=== PATIENT | male | born 1955 | race Caucasian/White ===

== ENCOUNTER 2018-02-20 20:14 | Observation (INO) ==
[2018-02-20] MEDS ORDERED: Nitroglycerin 0.4 MG TAB.SUBL SL ONE (20:28)
[2018-02-20] MEDS ORDERED: Ipratropium/Albuterol Neb 3 ML IH ONE (20:28)
[2018-02-20] MEDS ORDERED: predniSONE 20 MG TABLET PO ONE (20:28)
--- NOTE | 2018-02-20 20:32 | Emergency Department Note ---
Disposition Clinical Impression: Chest pain Qualifiers: Chest pain type: precordial pain Qualified Code(s): R07.2 - Precordial pain Disposition: Admitted As Inpatient Instructions: Chest Pain (ED) [facility] [Primary Care Provider[facility] - Time of Disposition: 00:12 General Adult HPI - General Stated complaint: seizure like activity Time Seen by Provider: 02/20/18 20:17 Source: patient Mode of arrival: EMS Limitations: no limitations - History of Present Illness HPI Narrative: This is a 63-year-old male who comes to the emergency department reporting epigastric and lower sternal chest pain that started about 1 hour prior to arrival. Reports associated nausea, but is also being treated for an ulcerative colitis flare and diverticulitis. 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 - Related Data Allergies Allergy/AdvReac Type Severity Reaction Status Date / Time acetaminophen [From Tylenol] Allergy Gastrointestinal Verified 02/20/18 20:37 Upset All systems ED: reviewed and negative except as stated. Cardiovascular: Reports: chest pain Gastrointestinal: Reports: nausea Physical Exam - General Limitations: no limitations General appearance: alert, in distress (In minimal distress) - Head Head exam: atraumatic, normocephalic, normal inspection - Chest Chest inspection: Present: normal inspection, symmetric chest wall rise - Respiratory Respiratory exam: Present: wheezes (There are x-ray wheezes in all polo). Absent: respiratory distress, stridor, accessory muscle use, prolonged expiratory phase - Cardiovascular Cardiovascular exam: Present: regular rate, normal rhythm, normal heart sounds - Abdominal Exam Abdominal exam: Present: soft, tenderness Abdominal tenderness: Present: RUQ, epigastrium. Absent: RLQ, LUQ, LLQ - Extremities Exam Extremities exam: Present: normal inspection, full ROM. Absent: tenderness, pedal edema - Neurological Exam Neurological exam: Present: alert, oriented X3, CN II-XII intact. Absent: motor sensory deficit - Psychiatric Psychiatric exam: Present: normal affect, normal mood - Skin Skin exam: Present: warm, dry, intact, normal color Course Course Narrative: This is a 63-year-old male with chest pain and epigastric pain Vital Signs Temperature 99.4 F 02/20/18 20:24 Pulse Rate 102 02/20/18 20:24 Respiratory Rate 18 02/20/18 20:24 Blood Pressure 138/96 02/20/18 20:24 O2 Sat by Pulse Oximetry 99 02/20/18 20:24 Temperature 99.4 F 02/20/18 20:24 Pulse Rate 96 02/20/18 22:00 Respiratory Rate 18 02/20/18 21:22 Blood Pressure 117/86 02/20/18 22:00 O2 Sat by Pulse Oximetry 99 02/20/18 22:00 Oxygen Delivery Oxygen Delivery Room Air Medical Decision Making - MDM Narrative Medical decision making narrative: This is a 63-year-old male with epigastric and lower sternal pain concerning for possible acute coronary syndrome. His initial evaluation was negative. I discussed his case with the on-call hospitalist, who accepted him for admission. - Lab Data Lab results reviewed: Yes I reviewed the patient's lab results. Lab results narrative: CBC shows leukocytosis at 15.3 with anemia at 12.1 and 37.3 BMP was unremarkable Troponin was low Result diagrams: 02/20/18 21:31 02/20/18 21:31 Lab Results 02/20/18 02/20/18 Range/Units 21:31 21:31 WBC 15.3 H (4.3-11.1) K/mcL RBC 4.49 (4.19-5.50) M/mcL Hgb 12.1 L (12.9-16.9) g/dL Hct 37.3 L (37.5-50.1) % MCV 83.1 (83.0-100.0) fL MCH 26.9 L (28.0-33.3) pg MCHC 32.4 (31.6-35.5) g/dL RDW 14.3 (11.5-14.5) % Plt Count 342 (140-400) K/mcL MPV 8.8 L (9.4-12.4) fL Immature Gran % 2.0 (0-4) % Seg Neutrophils % 69.3 % Lymphocytes % 17.5 % Monocytes % 9.2 % Eosinophils % 1.5 % Basophils % 0.5 % Neutrophils # 10.6 H (1.6-8.9) K/mcL Lymphocytes # 2.7 (0.6-4.6) K/mcL Monocytes # 1.4 H (0.0-1.3) K/mcL Eosinophils # 0.2 (0.0-0.6) K/mcL Basophils # 0.1 (0.0-0.2) K/mcL Immature Plt Fraction 1.2 (1.1-6.1) % Sodium 133 L (136-145) mEq/L Potassium 4.4 (3.5-5.1) mEq/L Chloride 100 (98-107) mEq/L Carbon Dioxide 27 (23-29) mEq/L BUN 26 H (8-23) mg/dL Creatinine 0.68 L (0.70-1.30) mg/dL Est GFR ( Amer) > 60 (> 60) Est GFR (Non-Af Amer) > 60 (> 60) BUN/Creatinine Ratio 38 H (6-26) Glucose 108 H (70-105) mg/dL Calculated Osmolality 281 (280-300) Calcium 8.9 (8.6-10.3) mg/dL Troponin I < 0.03 (< 0.04) ng/mL - Radiology Data Radiology results reviewed: Yes I reviewed the patient's radiology results. Chest x-ray showed by bilateral atelectasis - EKG Data EKG #1 EKG results narrative: ECG showed sinus tachycardia, 105 bpm, normal intervals, normal axis, T waves are larger than normal but not hyperacute, there are very small ST elevations diffusely EKG #2 EKG attestation: Yes I reviewed and interpreted this EKG. EKG results narrative: A repeat EKG was performed because of the wandering baseline on the initial and. This showed a sinus tachycardia at 100 bpm, normal intervals, normal axis , no ST or T-wave abnormalities except T waves in leads 2 and 3 larger is typical. Critical Care Time Critical Care Time: Yes Total Critical Care Time: 15 Attestation: 50 minutes of critical care time was spent independent of other billable procedures
[2018-02-20 21:54] LABS: Basophils # 0.1 K/mcL (0.0-0.2); Basophils % 0.5 %; Eosinophils # 0.2 K/mcL (0.0-0.6); Eosinophils % 1.5 %; Hematocrit 37.3 % (37.5-50.1); Hemoglobin 12.1 g/dL (12.9-16.9); Immature Platelets 1.2 % (1.1-6.1); Lymphocytes # 2.7 K/mcL (0.6-4.6); Lymphocytes % 17.5 %; Mean Corpuscular HGB Conc 32.4 g/dL (31.6-35.5); Mean Corpuscular Hemoglobin 26.9 pg (28.0-33.3); Mean Corpuscular Volume 83.1 fL (83.0-100.0); Mean Platelet Volume 8.8 fL (9.4-12.4); Monocytes # 1.4 K/mcL (0.0-1.3); Monocytes % 9.2 %; Neutrophils # 10.6 K/mcL (1.6-8.9); Platelet Count 342 K/mcL (140-400); Red Blood Count 4.49 M/mcL (4.19-5.50); Red Cell Distribution Width 14.3 % (11.5-14.5); Segmented Neutrophils % 69.3 %
[2018-02-20 22:22] LABS: BUN/Creatinine Ratio 38 (6-26); Blood Urea Nitrogen 26 mg/dL (8-23); Calcium 8.9 mg/dL (8.6-10.3); Carbon Dioxide 27 mEq/L (23-29); Chloride 100 mEq/L (98-107); Glucose 108 mg/dL (70-105); Osmolality,Calculated 281 (280-300); Potassium 4.4 mEq/L (3.5-5.1); Sodium 133 mEq/L (136-145); Troponin I < 0.03 ng/mL (< 0.04); eGFR For Non-African Americans > 60 (> 60)
[2018-02-20] MEDS ORDERED: *HR* FentaNYL (PF) 100 MCG/2 ML VIAL IVP ONE (22:35)
[2018-02-21] MEDS ORDERED: hydrOXYzine pamoate 25 MG CAPSULE PO PRN (01:08)
[2018-02-21] MEDS ORDERED: Isovue-370 500 ML INFUS..BTL IV ONE (01:09)
[2018-02-21] MEDS ORDERED: GI Cocktail 40 ML EACH PO ONE (01:10)
[2018-02-21] MEDS ORDERED: Mag Hydrox/Al Hydrox/Simeth 30 ML UDC PO PRN (01:10)
[2018-02-21] MEDS ORDERED: *HR* Promethazine 25 MG/ML VIAL IVP ONE (01:11)
[2018-02-21] MEDS: traZODone 50 MG TABLET PO SCH ×2 (01:47→21:43)
[2018-02-21] MEDS: Ringers Solution, Lactated 1,000 ML IVC SCH ×2 (01:47→14:41)
--- NOTE | 2018-02-21 02:02 | Internal Med History&Physical ---
Date of Encounter: 02/21/18 Time of Encounter: 01:59 Internal Medicine - H&P: HPI Chief complaint: Abdominal pain Admitted From: Home Plans for Post Hospital Care: Home History of present illness: Luis A Meek is a 63-year-old man with a history of psychotic disorder ( bipolar and schizoaffective) and reports a history of inflammatory bowel disease that has been evaluated at multiple times and multiple medical centers he reports in addition to Barretts esophagus who presents here with the complaint of abdominal pain which she initially described as epigastric and also in the lower sternal area associated with nausea and subsequently he says it was in the lower abdomen associated with bleeding per rectum. He states his care has usually been at the [facility] for which she was recently hospitalized. He also admits to prior history of suicidal ideation which warranted inpatient psychiatric admission but says this is no longer active. He states that his pain is chronic however now acutely it has worsened. She describes the pain as sharp and occasionally stabbing associated with severe nausea. His food intake is limited to pureed foods and full liquid diet. The initial concern in the ER for him was chest pain for which reason EKGs were done and troponin assessments however he subsequently changed his complaints after admission stating that he has a lower abdominal pain and believes he has a flare from his inflammatory bowel disease. He states he has been taking steroids for the past 1 week because of this. He is highly tangential and is difficult to stay on topic when conversing with him. At this time other than requesting medication for nausea and abdominal pain he says he has no other complaints. He denies fever, chills, diarrhea, dyspnea and dysuria. Of note, he relates a history of seizure disorder for which she is on levetiracetam. Past Med Surg Social Fam HX - Past Medical History Medical history: COPD, hyperlipidemia, seizures, syncope Additional medical history: diverticulitis, UC, barrets esophagus, previous SI with tylenol Psychiatric history: anxiety, bipolar, depression, PTSD, schizophrenia - Past Surgical History Additional surgical history: abd surgery, face surgery, - Social History Smoking Status: Former smoker Alcohol use: none Drug use: none - Family History Mother Living Status: Age at : 56 Cause of : lung CA Hx Family Cancer: Yes Father Living Status: Age at : 76 Hx Family Cancer: Yes (esopageal) Sister Living Status: Age at : 48 Hx Family Cancer: Yes (reproductive organs) Internal Medicine - H&P: Meds Asenapine Maleate [Saphris] 10 mg SL HS 02/21/18 [History] Aspirin [Lo-Dose Aspirin EC] 81 mg PO DAILY 02/21/18 [History] Atorvastatin [Lipitor] 40 mg PO HS 02/21/18 [History] Balsalazide Disodium [Colazal] 750 mg PO TID 02/21/18 [History] Budesonide/Formoterol 160/4.5 [Symbicort 160/4.5] 2 puff IH BIDR 02/21/18 [ History] Docusate [Colace] 100 mg PO BID 02/21/18 [History] Famotidine [Pepcid] 40 mg PO BID 02/21/18 [History] Levofloxacin [Levaquin] 750 mg PO DAILY 02/21/18 [History] Mirtazapine [Remeron] 30 mg PO HS 02/21/18 [History] Nicotine Patch [Nicoderm] 7 mg TD DAILY 02/21/18 [History] OLANZapine [Zyprexa] 5 mg PO BID 02/21/18 [History] Ondansetron ODT [Zofran ODT] 4 mg SL Q8HR PRN 02/21/18 [History] Tamsulosin [Flomax] 0.4 mg PO DAILY 02/21/18 [History] clonazePAM [Clonazepam] 1 mg PO TID 02/21/18 [History] hydrOXYzine HCl [Hydroxyzine HCl] 25 mg PO QID PRN 02/21/18 [History] predniSONE [PredniSONE] 20 mg PO DAILY 02/21/18 [History] traZODone [TraZODone] 100 mg PO HS 02/21/18 [History] 3 Allergy/AdvReac Type Severity Reaction Status Date / Time acetaminophen [From Tylenol] Allergy Gastrointestinal Verified 02/20/18 20:37 Upset All Systems PM: A 10-system review of systems was performed and is negative for pertinent findings except as documented above in the HPI. - Constitutional Vitals: Temp Pulse Resp BP Pulse Ox 98.0 F 80 18 133/87 15 02/21/18 01:08 02/21/18 01:08 02/20/18 21:22 02/21/18 01:08 02/21/18 01:08 Exam: Vitals: Reviewed General: Appears somewhat unkempt Skin: Pale and dry HEENT: Slightly dry mucous membranes. Mild conjunctivae pallor. Neck: No lymphadenopathy. No JVD. No carotid bruits. No palpable thyroid. Chest: Normal thoracic expansion. Normal breath sounds. Clear to auscultation. Heart: Normal S1 & S2; rhythmic. No rubs or murmurs. Abdomen: Non-distended, soft and non-tender to palpation. No peritoneal reaction. Extremities: No clubbing, cyanosis or edema. No calf tenderness. Normal distal pulses. Neurological: Awake, alert and oriented to person, place and time. No focal deficits. Psych: Affect appropriate. Internal Med - H&P Results - Labs CBC & Chem 7: 02/20/18 21:31 02/20/18 21:31 - Assessment and plan (1) Abdominal pain Current Visit: Yes Status: Acute Assessment and plan: Given his reported history of IBD which he cannot specify time of diagnosis or if on active medications, will obtain a CT abdomen w/ contrast to assess for colonic inflammation as the potential cause of his abdominal pain. Symptomatic treatment for now. Received steroids in the ER and has been on steroids for a week which likely explains his leukocytosis. Stool for occult blood evaluation necessary. Qualifiers: Abdominal location: generalized Qualified Code(s): R10.84 - Generalized abdominal pain (2) Chest pain Current Visit: Yes Status: Acute Assessment and plan: Questionable history; will keep on telemetry in the interim, repeat EKG and troponin just in case. Qualifiers: Chest pain type: unspecified Qualified Code(s): R07.9 - Chest pain, unspecified (3) Psychiatric disorder Current Visit: Yes Status: Acute Assessment and plan: May need psych eval during hospital stay. For now meds will be reconciled. No suicidal ideation at this time. (4) Seizure disorder Current Visit: Yes Status: Acute Assessment and plan: Reported. Unclear what dose of medication he is on. Will attempt to clarify and resume accordingly however for now we do not find evidence of him being on it. Will check a level. (5) DVT prophylaxis Current Visit: Yes Status: Acute Assessment and plan: Heparin SubQ ordered. - Time Spent With Patient Total time spent is greater than 50% in coordination of care (as documented) at patient's floor/unit and/or counseling patient: Greater than 35 minutes
[2018-02-21 06:12] LABS: Basophils # 0.1 K/mcL (0.0-0.2); Basophils % 0.3 %; Eosinophils % 0.1 %; Hematocrit 39.6 % (37.5-50.1); Hemoglobin 12.8 g/dL (12.9-16.9); Immature Granulocytes % 1.6 % (0-4); Lymphocytes % 11.3 %; Mean Corpuscular HGB Conc 32.3 g/dL (31.6-35.5); Mean Corpuscular Hemoglobin 26.8 pg (28.0-33.3); Mean Corpuscular Volume 82.8 fL (83.0-100.0); Monocytes # 0.7 K/mcL (0.0-1.3); Monocytes % 3.9 %; Neutrophils # 14.3 K/mcL (1.6-8.9); Platelet Count 361 K/mcL (140-400); Red Blood Count 4.78 M/mcL (4.19-5.50); Red Cell Distribution Width 14.6 % (11.5-14.5); Segmented Neutrophils % 82.8 %
[2018-02-21] MEDS: Pantoprazole 40 MG VIAL IVP SCH ×2 (06:12→06:17)
[2018-02-21] MEDS: *HR* Heparin 5,000 UNIT/ML VIAL SQ SCH ×3 (06:12→21:43)
[2018-02-21 06:39] LABS: Troponin I < 0.03 ng/mL (< 0.04)
[2018-02-21] MEDS ORDERED: Ketorolac 30 MG/ML VIAL IVP ONE (06:45)
[2018-02-21 07:03] LABS: Alanine Aminotransferase 11 Units/L (7-52); Albumin 3.6 g/dL (3.5-5.7); Albumin/Globulin Ratio 1.1 (1.1-2.2); Alkaline Phosphatase 67 Units/L (34-104); Aspartate Amino Transferase 14 Units/L (13-39); BUN/Creatinine Ratio 36 (6-26); Bilirubin,Total 0.2 mg/dL (0.3-1.0); Blood Urea Nitrogen 20 mg/dL (8-23); Calcium 9.2 mg/dL (8.6-10.3); Carbon Dioxide 24 mEq/L (23-29); Chloride 103 mEq/L (98-107); Globulin 3.2 g/dL (2.4-3.5); Glucose 134 mg/dL (70-105); Osmolality,Calculated 287 (280-300); Potassium 4.1 mEq/L (3.5-5.1); Sodium 136 mEq/L (136-145); Total Protein 6.8 g/dL (6.4-8.9); eGFR For Non-African Americans > 60 (> 60)
[2018-02-21] MEDS: Budesonide/Formoterol 160/4.5 1 PUFF INH IH SCH ×2 (08:03→22:32)
[2018-02-21] MEDS: *HR* OxyCODONE Immed Rel 5 MG TABLET PO PRN ×3 (08:43→19:42)
[2018-02-21] MEDS: OLANZapine 5 MG TAB.RAPDIS PO SCH ×2 (08:45→21:43)
[2018-02-21] MEDS: MetroNIDAZOLE 500 MG/100 ML 500 MG/100 ML BAG IVPB SCH ×2 (08:46→17:20)
[2018-02-21] MEDS: Nicotine 7 MG PATCH.TD24 TD SCH (08:46)
[2018-02-21] MEDS: clonazePAM 1 MG TABLET PO SCH ×3 (08:46→21:43)
[2018-02-21] MEDS: Famotidine 20 MG TABLET PO SCH ×2 (08:46→21:44)
[2018-02-21] MEDS: *HR* Promethazine 25 MG/ML VIAL IVP PRN ×2 (09:00→17:28)
--- NOTE | 2018-02-21 15:37 | Event Note ---
Date of Encounter: 02/21/18 Time of Encounter: 15:33 Patient was seen and examined by hospitalist earlier this morning. Currently patient is alert and appropriate following simple commands denies any chest pain or shortness of breath at this time. Does complain of occasional abdominal pain and it does have some tenderness to right lower quadrant on palpation. We will obtain medical records from the [place]. Awaiting GI recommendations
--- NOTE | 2018-02-21 15:56 | Gastroenterology Consult Note ---
<Bailee Gage - Last Filed: 02/21/18 21:59> Date of Encounter: 02/21/18 Time of Encounter: 15:54 - Assessment and plan (1) Abdominal pain Current Visit: Yes Status: Acute Assessment and plan: 63-year-old male with reporting past medical history of ulcerative colitis and Tomlin's esophagus complaining of abdominal pain. Sharp in nature and pulsatile. Recently seen at [facility] and treated for ulcerative colitis and diverticulitis with antibiotics and steroids. Started on Bisalazide by [facility] gastroenterologists. Diagnosed with ulcerative colitis in 2007, self treating with diet control. Abdominal CT demonstrated small bowel wall thickening concern for infectious vs inflammatory process. WBC 17.3 (15.3), afebrile stool occult negative AST, ALT, alkaline phosphatase WNL Plan: -Enteroscopy tomorrow -Currently on ciprofloxacin and metronidazole -started on bentyl, Lactobacillus -home Colace -continue NPO Qualifiers: Abdominal location: generalized Qualified Code(s): R10.84 - Generalized abdominal pain - Time Spent With Patient Total time spent is greater than 50% in coordination of care (as documented) at patient's floor/unit and/or counseling patient: GI History of Present Illness - Data of Consult Consult date: 02/21/18 Requesting Physician: Clarence Goss MD - Consult Narrative Reason for consult: History of IBD and small bowel wall thickening on CT History of present illness: Mr. Meek is a 63 year old male with past medical history of ulcerative colitis , Tomlin's esophagus, schizophrenia, bipolar who presented to [facility] due to abdominal pain for which gastroenterology was consulted due to history of IBD and abdominal CT findings. Abdominal/pelvis CT demonstrated small bowel wall thickening concern for infectious process vs inflammation. The patient reported that he was diagnosed with ulcerative colitis in 2007 for which he has been managing himself with a specific bland diet. He reported that he was at the [place] in [place] and there he was treated for ulcerative colitis flare with antibiotics and steroids. He was was seen by gastroenterologists there and started on bisalazide which he reports he cannot tolerate due to his abdomen swelling and more pain. He had an EGD and colonoscopy at that time 3 weeks ago which demonstrated one polyp in the colon. He said the EGD was normal. He stated that he also cannot take PPI due to side effects. He stated that he came to the hospital because of worsened abdominal pain that is pulsatile and sharp in nature. Pain medications and steroids help. No family history of ulcerative colitis. He is a former smoker and ETOH drinker. He quit smoking marijuana. He denies weight loss, fever, chills, chest pain, melena, hematachezia. The patient was started on Cipro and Flagyl in the ED and given a dose of prednisone. Past Med Surg Social Fam HX - Past Medical History Attestation: Yes The following information was validated with the patient. Source: patient Medical history: COPD, hyperlipidemia, seizures, syncope Additional medical history: diverticulitis, UC, barrets esophagus, previous SI with tylenol Psychiatric history: anxiety, bipolar, depression, PTSD, schizophrenia - Past Surgical History Additional surgical history: abd surgery, face surgery, - Social History Smoking Status: Former smoker Alcohol use: none Drug use: none - Family History Mother Living Status: Age at : 56 Cause of : lung CA Hx Family Cancer: Yes Father Living Status: Age at : 76 Hx Family Cancer: Yes (esopageal) Sister Living Status: Age at : 48 Hx Family Cancer: Yes (reproductive organs) - Gastrointestinal Gastrointestinal: Present: abdominal pain, constipation, diarrhea, nausea, vomiting. Absent: hematemesis, hematochezia, melena - Constitutional Constitutional: weight gain, no fever(s), no weight loss - EENT Nose, mouth and throat: Absent: dysphagia - Cardiovascular Cardiovascular ROS: Absent: chest pain, palpitations - Respiratory Respiratory IM: Absent: cough, dyspnea - Neurological ROS Neurological GI: Absent: confusion, weakness - Hematologic/Lymphatic Hematologic/Lymphatic pediatric: Absent: easy bleeding - Musculoskeletal Musculoskeletal ROS GI: Absent: joint swelling - Integumentary Integumentary GI: Absent: jaundice, rash - Psychiatric ROS Psychiatric GI: Present: anxiety, other (Bipolar) - Endocrine Endocrine IM: Present: fatigue - Constitutional Vitals: Temp Pulse Resp BP Pulse Ox 98.2 F 82 16 110/71 96 02/21/18 11:39 02/21/18 11:39 02/21/18 15:43 02/21/18 11:39 02/21/18 15:43 Exam: Gen.: Vitals noted. No acute distress. AAOx3 HEENT: oropharynx clear, Normocephalic, atraumatic Cardiac: RRR, no murmur, +S1/S2 Pulmonary: CTA bilaterally, no wheezes, rales or rhonchi, equal chest expansion Abdomen: soft, minimal tender, Bowel sounds noted, no guarding MSK: ROM intact, no joint swelling noted Extremities: no BLE edema, nontender calf, no cyanosis or clubbing Neuro: A&Ox3, moves all extremities, no focal deficits Psych: Appropriate mood and behavior Results - Labs CBC & Chem 7: 02/21/18 05:49 02/21/18 05:49 Labs: Last Result Calcium 9.2 mg/dL (8.6-10.3) 02/21/18 05:49 Troponin I < 0.03 ng/mL (< 0.04) 02/21/18 05:49 Stool Occult Blood Negative (Negative) 02/21/18 06:30 Entire Visit Hgb 12.8 g/dL (12.9-16.9) L 02/21/18 05:49 Hct 39.6 % (37.5-50.1) 02/21/18 05:49 Total Bilirubin 0.2 mg/dL (0.3-1.0) L 02/21/18 05:49 AST 14 Units/L (13-39) 02/21/18 05:49 ALT 11 Units/L (7-52) 02/21/18 05:49 - Impressions Impressions Abdomen/Pelvis CT 02/21/18 01:09 IMPRESSION: Small bowel wall thickening is likely infectious or inflammatory. Right lower lobe atelectasis or pneumonia. D/ / Monty Berrios MD / Monty Berrios MD Interpreting Provider: Monty Berrios MD Consult Discharge Plan - Plan [facility]errals: [facility] [Primary Care Provider[facility] - <Jenifer Hatch - Last Filed: 02/21/18 23:45> Date of Encounter: 02/21/18 Time of Encounter: 15:00 - Time Spent With Patient Total time spent is greater than 50% in coordination of care (as documented) at patient's floor/unit and/or counseling patient: GI History of Present Illness - Data of Consult Requesting Physician: Clarence Goss MD - Consult Narrative History of present illness: Mr. Meek is a 63 year old male - Constitutional Vitals: Temp Pulse Resp BP Pulse Ox 98.0 F 78 16 114/73 98 02/21/18 22:47 02/21/18 22:47 02/21/18 22:47 02/21/18 22:47 02/21/18 22:47 Results - Labs CBC & Chem 7: 02/21/18 05:49 02/21/18 05:49 Labs: Last Result Calcium 9.2 mg/dL (8.6-10.3) 02/21/18 05:49 Troponin I < 0.03 ng/mL (< 0.04) 02/21/18 05:49 Stool Occult Blood Negative (Negative) 02/21/18 06:30 Entire Visit Hgb 12.8 g/dL (12.9-16.9) L 02/21/18 05:49 Hct 39.6 % (37.5-50.1) 02/21/18 05:49 Total Bilirubin 0.2 mg/dL (0.3-1.0) L 02/21/18 05:49 AST 14 Units/L (13-39) 02/21/18 05:49 ALT 11 Units/L (7-52) 02/21/18 05:49 - Impressions Impressions Abdomen/Pelvis CT 02/21/18 01:09 IMPRESSION: Small bowel wall thickening is likely infectious or inflammatory. Right lower lobe atelectasis or pneumonia. D/ / Monty Berrios MD / Monty Berrios MD Interpreting Provider: Monty Berrios MD - Attending Attestation I examined this patient and my medical decision-making was reviewed with the Resident Physician. I agree with the documented findings, disposition and treatment plan as described except to the extent set forth below. Pt seen. O/E Abd soft . A: Pt with small bowel wall thickening r/o Crohns Rec: Enteroscopy am
[2018-02-21] MEDS: Lactobacillus 1 EACH CAP.SPRINK PO SCH (17:20)
[2018-02-21] MEDS: Mirtazapine 15 MG TABLET PO SCH (21:44)
[2018-02-21] MEDS: (Asenapine Maleate [Saphris] 10 MG) SL SCH (21:44)
[2018-02-22] MEDS: MetroNIDAZOLE 500 MG/100 ML 500 MG/100 ML BAG IVPB SCH ×4 (00:05→16:36)
[2018-02-22] MEDS: *HR* Heparin 5,000 UNIT/ML VIAL SQ SCH ×3 (06:13→21:04)
[2018-02-22] MEDS: *HR* Promethazine 25 MG/ML VIAL IVP PRN (06:13)
[2018-02-22 06:16] LABS: Basophils # 0.1 K/mcL (0.0-0.2); Basophils % 0.6 %; Eosinophils # 0.4 K/mcL (0.0-0.6); Eosinophils % 3.4 %; Hemoglobin 12.2 g/dL (12.9-16.9); Immature Granulocytes % 1.7 % (0-4); Lymphocytes # 2.8 K/mcL (0.6-4.6); Lymphocytes % 24.9 %; Mean Corpuscular Hemoglobin 27.2 pg (28.0-33.3); Mean Corpuscular Volume 82.6 fL (83.0-100.0); Mean Platelet Volume 9.1 fL (9.4-12.4); Monocytes # 1.1 K/mcL (0.0-1.3); Monocytes % 9.6 %; Neutrophils # 6.8 K/mcL (1.6-8.9); Platelet Count 347 K/mcL (140-400); Red Blood Count 4.48 M/mcL (4.19-5.50); Red Cell Distribution Width 14.6 % (11.5-14.5); Segmented Neutrophils % 59.8 %
[2018-02-22 06:34] LABS: BUN/Creatinine Ratio 24 (6-26); Blood Urea Nitrogen 15 mg/dL (8-23); Calcium 8.8 mg/dL (8.6-10.3); Carbon Dioxide 29 mEq/L (23-29); Chloride 102 mEq/L (98-107); Glucose 92 mg/dL (70-105); Osmolality,Calculated 284 (280-300); Potassium 4.1 mEq/L (3.5-5.1); Sodium 137 mEq/L (136-145); eGFR For Non-African Americans > 60 (> 60)
[2018-02-22] MEDS: Lactobacillus 1 EACH CAP.SPRINK PO SCH (09:02)
[2018-02-22] MEDS: Famotidine 20 MG TABLET PO SCH ×2 (09:02→21:03)
[2018-02-22] MEDS: OLANZapine 5 MG TAB.RAPDIS PO SCH ×2 (09:02→21:02)
[2018-02-22] MEDS: *HR* OxyCODONE Immed Rel 5 MG TABLET PO PRN ×2 (09:02→22:12)
[2018-02-22] MEDS: clonazePAM 1 MG TABLET PO SCH ×3 (09:03→21:03)
[2018-02-22] MEDS: Nicotine 7 MG PATCH.TD24 TD SCH (09:03)
[2018-02-22] MEDS ORDERED: Gadolinium Contrast Agent (WT Based) IV PRN (10:23)
[2018-02-22] MEDS: Budesonide/Formoterol 160/4.5 1 PUFF INH IH SCH ×2 (11:15→19:40)
--- NOTE | 2018-02-22 12:30 | Internal Med Progress Note ---
Hospitalist Progress Note - Encounter Date of Encounter: 02/22/18 Time of Encounter: 12:28 - Subjective Interval History: pt resting in bed, he has no witnessed seizure since admission, he seems oriented and answered questions appropriately. - Exam Vitals: Temp Pulse Resp BP Pulse Ox 98.5 F 84 18 109/71 93 02/22/18 07:13 02/22/18 07:13 02/22/18 07:13 02/22/18 07:13 02/22/18 07:13 Exam: PHYSICAL EXAMINATION: GENERAL APPEARANCE: The patient is alert, oriented and in no acute distress. HEENT: Head is normocephalic. The sinuses are nontender. Pupils are equal and reactive. The nares are patent. Oropharynx clear without lesions. NECK: Supple without lymphadenopathy. HEART: Regular rate and rhythm. LUNGS: No crackles or wheezes are heard. ABDOMEN: Soft, nontender, nondistended with good bowel sounds heard. Inguinal area is normal. EXTREMITIES: Without cyanosis, clubbing or edema. NEUROLOGICAL: Gross nonfocal. SKIN: Warm and dry without any rash. - Assessment and Plan (1) Chest pain Current Visit: Yes Status: Acute Assessment and Plan: Questionable history, patient reported productive cough as well. Chest x-ray no pneumonia. BG no acute ST-T change, troponin was negative. Bronchitis bacterial versus viral was suspected, patient already on antibiotics Cipro and Flagyl for possible colitis, antibiotics also will cover possible bronchitis. (2) Abdominal pain Current Visit: Yes Status: Acute Assessment and Plan: Given his reported history of IBD which he cannot specify time of diagnosis. CT showed small bowel wall thickening, suspicious for infection. Received steroids in the ER and has been on steroids for a week which likely explains his leukocytosis. Stool for occult blood evaluation necessary. GI consulted, colonoscopy scheduled in the morning. (3) Psychiatric disorder Current Visit: Yes Status: Acute Assessment and Plan: May need psych eval during hospital stay. For now meds will be reconciled. No suicidal ideation at this time. (4) Seizure disorder Current Visit: Yes Status: Acute Assessment and Plan: Reported. Unclear what dose of medication he is on. Will attempt to clarify and resume accordingly however for now we do not find evidence of him being on it. Will check a level. Neurology was consulted, MRI brain and EEG were ordered. Patient started on Keppra 500 mg twice a day. (5) DVT prophylaxis Current Visit: Yes Status: Acute Assessment and Plan: Heparin SubQ ordered. - Time Spent with Patient Total time spent is greater than 50% in coordination of care (as documented) at patient's floor/unit and/or counseling patient: Greater than 35 minutes Plan of Care Discussed with: patient Internal Medicine: Result - Labs CBC & Chem 7: 02/22/18 05:40 02/22/18 05:40 Labs: Short CBC 02/22/18 Range/Units 05:40 WBC 11.3 H (4.3-11.1) K/mcL Hgb 12.2 L (12.9-16.9) g/dL Hct 37.0 L (37.5-50.1) % Plt Count 347 (140-400) K/mcL Neutrophils # 6.8 (1.6-8.9) K/mcL BMP 02/22/18 05:40 Sodium 137 Potassium 4.1 Chloride 102 Carbon Dioxide 29 BUN 15 Creatinine 0.63 L Glucose 92 Calcium 8.8 Consult Discharge Plan - Plan Referrals: [facility] [Primary Care Provider] - (1) Chest pain Qualifiers: Chest pain type: unspecified Qualified Code(s): R07.9 - Chest pain, unspecified (2) Abdominal pain Qualifiers: Abdominal location: generalized Qualified Code(s): R10.84 - Generalized abdominal pain
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
[2018-02-22] MEDS ORDERED: *HR* Propofol 200 MG/20 ML VIAL IVP ONE (16:10)
[2018-02-22] MEDS ORDERED: Lidocaine -MPF 2% 2 ML VIAL ONE ×2 (16:14)
--- NOTE | 2018-02-22 16:28 | EEG/EMG/Oth Biometrics Report ---
EEG Procedure Report EEG Procedure: Routine EEG Procedure Note: This is a routine 21 channel digital EEG performed utilizing 10- 20 international electrode placement system. FINDINGS: Patient has a predominant waking background frequency that is average voltage 8 to 10 Hertz alpha activity in the posterior region, normal amplitude symmetrical over the both hemispheres reactive to eyes opening and closing record continued to show alpha activity intermixed with some theta off and on, no abnormal activity recorded, predominantly no evidence of any spike wave discharges or any lateralizing abnormalities, Photic stimulation did not produce any convulsive response. Intermittent EMG artifacts were noted. Stage II sleep was not achieved. Impression: Normal awake drowsy electroencephalogram. No epileptiform discharges or any other paroxysmal activities noted. ( Please note that normal EEG does not exclude the diagnosis of seizures or epilepsy, clinical correlation is suggested)
[2018-02-22] MEDS: 0.9 % Sodium Chloride 500 ML IVC SCH (17:05)
[2018-02-22] MEDS ORDERED: Simethicone 40 MG/0.6 ML MLS IR ONE (17:09)
[2018-02-22] MEDS ORDERED: Tetracaine/Benzocaine/Butamben 1 SPRAY AEROSOL MM ONE (17:09)
--- NOTE | 2018-02-22 17:14 | Anesthesia Evaluation PreOp ---
Date of Encounter: 02/22/18 Time of Encounter: 17:10 - Past History Planned Operation: PUSH ENTEROSTOMY Cardiac History: Other (1ST AVB) Pulmonary History: Smoker, COPD RECORD CHANGER History: Seizures (LAST SEIZURE 3 DAYS AGO), Other (BIPOLAR, SCHIZOPHRENIA, PTSD) Other Medical History: GERD (CONTROLLED) Anesthesia History: No Prior Anesthetic Complications, Past Anesthesia Alcohol Use: none Drug use: none Medications and Allergies Albuterol Sulfate [Albuterol Inhaler] 2 puff IH Q4HR 02/21/18 [History] Asenapine Maleate [Saphris] 10 mg SL HS 02/21/18 [History] Aspirin [Lo-Dose Aspirin EC] 81 mg PO DAILY 02/21/18 [History] Atorvastatin [Lipitor] 40 mg PO HS 02/21/18 [History] Balsalazide Disodium [Colazal] 2,250 mg PO TID 02/21/18 [History] Budesonide/Formoterol 80/4.5 [Symbicort 80/4.5] 2 puff IH BID 02/21/18 [History ] Docusate [Colace] 100 mg PO BID 02/21/18 [History] Famotidine [Pepcid] 40 mg PO BID 02/21/18 [History] Levofloxacin [Levaquin] 750 mg PO DAILY 02/21/18 [History] Mirtazapine [Remeron] 30 mg PO HS 02/21/18 [History] Nicotine Patch [Nicoderm] 7 mg TD DAILY 02/21/18 [History] OLANZapine [Zyprexa] 5 mg PO BID 02/21/18 [History] Ondansetron ODT [Zofran ODT] 4 mg SL Q8HR PRN 02/21/18 [History] Tamsulosin [Flomax] 0.4 mg PO DAILY 02/21/18 [History] clonazePAM [Clonazepam] 1 mg PO TID 02/21/18 [History] hydrOXYzine HCl [Hydroxyzine HCl] 25 mg PO QID PRN 02/21/18 [History] predniSONE [PredniSONE] 20 mg PO DAILY 02/21/18 [History] traZODone [TraZODone] 100 mg PO HS 02/21/18 [History] 3 Allergy/AdvReac Type Severity Reaction Status Date / Time acetaminophen [From Tylenol] Allergy Gastrointestinal Verified 02/20/18 20:37 Upset - Meds/Allergy Pre-op Review Medications Reviewed: Yes Allergies Reviewed: Yes Beta Blockers on Current Med List: No Anesthesia Results - Labs 02/22/18 05:40 02/22/18 05:40 Anesthesia Exam Vital Signs/O2 Sat, Most Current Temp Pulse Resp BP Pulse Ox 98.2 F 94 18 136/85 94 02/22/18 16:12 02/22/18 17:02 02/22/18 17:02 02/22/18 17:02 02/22/18 17:02 HEIGHT 1.75 m WEIGHT 77kg BMI 25 NPO (# of Hours): 8 - HEENT Mallampati: II Teeth: Edentulous Oral Opening: Greater than 3 - Cardiac Rhythm: Regular - Pulmonary Breath Sounds: bilateral Clear Respiratory Effort: Symmetrical - Additional Findings Active Medications Albuterol Sulfate (Albuterol Inhaler) 2 puff IH [id number] PRN PRN Reason: Shortness Of Breath/Wheezing Stop: 08/23/18 15:22 Last Admin: 02/21/18 15:43 Dose: 2 puff Atorvastatin Calcium (Lipitor) 40 mg PO HS [facility] Stop: 08/23/18 21:01 Last Admin: 02/21/18 21:43 Dose: 40 mg Balsalazide (Colazal) 750 mg PO TID [facility] Stop: 08/23/18 09:01 Last Admin: 02/22/18 14:00 Dose: Not Given Budesonide/Formoterol Fumarate (Symbicort) 2 puff IH BIDR [facility] PRN Reason: Protocol Stop: 08/23/18 10:01 Last Admin: 02/22/18 11:15 Dose: Not Given Clonazepam (Klonopin) 1 mg PO TID [facility] Stop: 08/23/18 09:01 Last Admin: 02/22/18 14:00 Dose: Not Given Famotidine (Pepcid) 40 mg PO BID [facility] Stop: 08/23/18 09:01 Last Admin: 02/22/18 09:02 Dose: 40 mg Heparin Sodium (Porcine) (Heparin) 5,000 unit SQ Q8HCO [facility] Stop: 08/23/18 06:01 Last Admin: 02/22/18 14:02 Dose: Not Given Hydroxyzine Pamoate (Hydroxyzine Pamoate) 25 mg PO QID PRN PRN Reason: Anxiety Ciprofloxacin Lactate (Cipro Premix 400 Mg/200 Ml) 400 mg in 200 mls @ 200 mls/ hr IVPB Q12HR [facility] Stop: 08/23/18 06:01 Last Infusion: 02/22/18 09:03 Dose: Infused Metronidazole (Flagyl Premix 500 Mg/100 Ml) 500 mg in 100 mls @ 100 mls/hr IVPB Q8HR [facility] Stop: 08/23/18 08:01 Last Admin: 02/22/18 16:36 Dose: 100 mls/hr Sodium Chloride (0.9 % Sodium Chloride) 500 mls @ 50 mls/hr IVC .Q10H [facility] Stop: 08/24/18 17:16 Last Admin: 02/22/18 17:05 Dose: 50 mls/hr Lactobacillus Acidophilus/Rhamnosus (Culturelle) 1 each PO DAILY [facility] Stop: 08/23/18 15:31 Last Admin: 02/22/18 09:02 Dose: 1 each Levetiracetam (Keppra) 500 mg PO Q12HR [facility] Stop: 08/24/18 18:01 Mirtazapine (Remeron) 30 mg PO HS [facility] Stop: 08/23/18 21:01 Last Admin: 02/21/18 21:44 Dose: 30 mg Nicotine (Nicoderm) 7 mg TD DAILY [facility] PRN Reason: Protocol Stop: 08/23/18 09:01 Last Admin: 02/22/18 09:03 Dose: 7 mg Olanzapine (Zyprexa Zydis) 5 mg PO BID [facility] Stop: 08/23/18 09:01 Last Admin: 02/22/18 09:02 Dose: 5 mg Oxycodone HCl (Roxicodone) 5 mg PO Q4HR PRN; Protocol PRN Reason: Pain Stop: 08/23/18 06:47 Last Admin: 02/22/18 09:02 Dose: 5 mg Promethazine HCl (Phenergan) 12.5 mg IVP Q8HR PRN PRN Reason: Nausea And Vomiting Stop: 08/23/18 01:11 Last Admin: 02/22/18 06:13 Dose: 12.5 mg Tamsulosin HCl (Flomax) 0.4 mg PO DAILY [facility] PRN Reason: Protocol Stop: 08/23/18 09:01 Last Admin: 02/22/18 09:04 Dose: Not Given Trazodone HCl (Trazodone) 100 mg PO HS [facility] Stop: 08/23/18 01:16 Last Admin: 02/21/18 21:43 Dose: 100 mg Anesthesia Assess/Plan ASA Score: 3 Modified Darwin Scale for Level of Consciousness: Cooperative, oriented, and tranquil Anesthetic Plan: MAC Monitoring Plan: Standard Monitors Recovery Plan: Other Anes Supervising Prov Stmt: Patient informed and consented. Risks, benefits, and alternatives discussed. Patient wishes to proceed.
--- NOTE | 2018-02-22 17:44 | Anesthesia Evaluation Post Op ---
Date of Encounter: 02/22/18 Time of Encounter: 17:37 - Vital Signs Vital Signs: 3 Vital Signs Time 1735 BP 96/59 Pulse 92 Resp 20 O2 Sat 96 - Lungs Lungs: Clear Ascult./Percussion - Airway Airway: Non-obstructed - Cardiovascular Regular Rate - Mental Status Mental Status: Alert & Oriented, Answers Appropriately - Nausea Vomiting Nausea Vomiting: Not Present - Hydration Hydration: NPO, Has not voided - Discharge PostOp Status: Transfer Patient to floor
[2018-02-22] MEDS: levETIRAcetam 250 MG TABLET PO SCH (18:42)
[2018-02-22] MEDS: traZODone 50 MG TABLET PO SCH (21:03)
[2018-02-22] MEDS: Mirtazapine 15 MG TABLET PO SCH (21:03)
[2018-02-22] MEDS: (Asenapine Maleate [Saphris] 10 MG) SL SCH (21:04)
[2018-02-22] MEDS ORDERED: Neosporin OINT 1 APPL PACKET TP ONE (22:09)
[2018-02-23] MEDS: MetroNIDAZOLE 500 MG/100 ML 500 MG/100 ML BAG IVPB SCH ×2 (00:42→08:33)
[2018-02-23] MEDS: *HR* Heparin 5,000 UNIT/ML VIAL SQ SCH (05:56)
[2018-02-23] MEDS: levETIRAcetam 250 MG TABLET PO SCH (05:56)
[2018-02-23] MEDS: 0.9 % Sodium Chloride 500 ML IVC SCH (05:57)
[2018-02-23 06:35] LABS: Basophils # 0.1 K/mcL (0.0-0.2); Basophils % 0.6 %; Eosinophils # 0.3 K/mcL (0.0-0.6); Eosinophils % 3.5 %; Hematocrit 41.2 % (37.5-50.1); Hemoglobin 13.1 g/dL (12.9-16.9); Lymphocytes # 2.2 K/mcL (0.6-4.6); Lymphocytes % 22.2 %; Mean Corpuscular HGB Conc 31.8 g/dL (31.6-35.5); Mean Corpuscular Hemoglobin 26.6 pg (28.0-33.3); Mean Corpuscular Volume 83.7 fL (83.0-100.0); Mean Platelet Volume 9.2 fL (9.4-12.4); Monocytes # 1.1 K/mcL (0.0-1.3); Monocytes % 10.7 %; Neutrophils # 6.1 K/mcL (1.6-8.9); Platelet Count 370 K/mcL (140-400); Red Blood Count 4.92 M/mcL (4.19-5.50); Red Cell Distribution Width 14.5 % (11.5-14.5)
[2018-02-23 06:45] LABS: BUN/Creatinine Ratio 23 (6-26); Blood Urea Nitrogen 18 mg/dL (8-23); Calcium 8.9 mg/dL (8.6-10.3); Carbon Dioxide 27 mEq/L (23-29); Chloride 102 mEq/L (98-107); Glucose 96 mg/dL (70-105); Osmolality,Calculated 284 (280-300); Potassium 3.6 mEq/L (3.5-5.1); Sodium 136 mEq/L (136-145); eGFR For Non-African Americans > 60 (> 60)
[2018-02-23] MEDS: *HR* OxyCODONE Immed Rel 5 MG TABLET PO PRN (06:45)
[2018-02-23] MEDS: Budesonide/Formoterol 160/4.5 1 PUFF INH IH SCH (07:53)
[2018-02-23] MEDS: Famotidine 20 MG TABLET PO SCH (08:32)
[2018-02-23] MEDS: OLANZapine 5 MG TAB.RAPDIS PO SCH (08:32)
[2018-02-23] MEDS: Lactobacillus 1 EACH CAP.SPRINK PO SCH (08:32)
[2018-02-23] MEDS: clonazePAM 1 MG TABLET PO SCH ×2 (08:32→14:18)
[2018-02-23] MEDS: Nicotine 7 MG PATCH.TD24 TD SCH (08:33)
[2018-02-23] MEDS: *HR* Promethazine 25 MG/ML VIAL IVP PRN (09:05)
[2018-02-23 11:01] VITALS: BP 107/75
--- NOTE | 2018-02-23 11:04 | Neurology Progress Note ---
<Analisa Dobbins N - Last Filed: 02/23/18 11:02> Date of Encounter: 02/23/18 Time of Encounter: 11:02 Assessment and Plan (1) Seizure disorder Status: Acute Patient is tolerating Keppra 500mg BID without any adverse affects No reported seizures overnight EEG negative for any epileptiform activity MRI only revealed chronic small vessel ischemic changes. No acute changes. Continue Keppra 500mg BID Subjective Principal diagnosis: Seizure disorder Interval history: Patient seen and examined at bedside today. He is awake and sitting upright. He denies any new complaints and states he feels well. He has not had any seizure like activity overnight. EEG performed yesterday was negative for any epileptiform activity. Objective - Constitutional Vitals: Temp Pulse Resp BP Pulse Ox 98.1 F 88 14 107/75 95 02/23/18 10:55 02/23/18 10:55 02/23/18 10:55 02/23/18 10:55 02/23/18 10:55 General appearance: Present: A&O X 3 Exam: Constitutional: awake, alert, no acute distress Heart: regular rate and rhythm no murmurs Lungs: mild wheezing throughout Abdomen: mild tenderness Neurological: Speech is fluent. patient is able to move all four extremities and sensation is intact in all four extremities. He is able to stand and maintain his balance unassisted. No confusion, tremors, rigidity, or somnolence. Psych: affect is unchanged from previous day. Patient continues to have rapid thought process and often gets off topic. Results - Laboratory Findings CBC and BMP: 02/23/18 04:36 02/23/18 04:36 Abnormal lab findings: Abnormal lab results MCH 26.6 pg (28.0-33.3) L 02/23/18 04:36 MPV 9.2 fL (9.4-12.4) L 02/23/18 04:36 Total Bilirubin 0.2 mg/dL (0.3-1.0) L 02/21/18 05:49 Levetiracetam <2 ug/mL (12-46) L 02/21/18 05:49 Consult Discharge Plan - Plan Instructions: Chest Pain (DC) [facility] Provider[facility] - Prescriptions: Promethazine [Phenergan] 12.5 mg PO Q8HR PRN #20 tablet PRN Reason: Nausea And Vomiting levETIRAcetam [Keppra] 500 mg PO Q12HR #60 tablet Ciprofloxacin HCl [Cipro] 500 mg PO BID #10 tablet Dicyclomine [Bentyl] 20 mg PO QID PRN #30 capsule PRN Reason: Pain metroNIDAZOLE [Metronidazole] 500 mg PO TID #15 tablet <Aria Beckwith I - Last Filed: 02/23/18 16:10> Date of Encounter: 02/23/18 Assessment and Plan (1) Seizure disorder Status: Acute Pt was seen and examined, my medical decision was reviewed with the Resident Physician, I agree with the documented findings, disposition and treatment plas as described except to the extent set forth below Suggest to continue on Keppra 500 twice a day [facility]. Okay to discharge from neurology standpoint Aria Beckwith MD Objective - Constitutional Vitals: Temp Pulse Resp BP Pulse Ox 98.1 F 88 14 107/75 95 02/23/18 10:55 02/23/18 10:55 02/23/18 10:55 02/23/18 10:55 02/23/18 10:55 Results - Laboratory Findings CBC and BMP: 02/23/18 04:36 02/23/18 04:36 Abnormal lab findings: Abnormal lab results MCH 26.6 pg (28.0-33.3) L 02/23/18 04:36 MPV 9.2 fL (9.4-12.4) L 02/23/18 04:36 Total Bilirubin 0.2 mg/dL (0.3-1.0) L 02/21/18 05:49 Levetiracetam <2 ug/mL (12-46) L 02/21/18 05:49
--- NOTE | 2018-02-23 11:38 | Discharge Summary ---
- NOTES TO OUTPATIENT PROVIDER Notes to Outpatient Provider: f/u with GI at [facility] for ulcerative colitis. f/u with PCP at [place] within a week. Orders not resulted at time of discharge: Pending orders 02/22/18 12:09 Sputum Culture [Culture,Sputum with Gram Stain] [] Routine Date of Encounter: 02/23/18 Time of Encounter: 11:29 - Discharge Diagnosis (1) Chest pain Priority: Primary Status: Resolved Qualifiers: Chest pain type: unspecified Qualified Code(s): R07.9 - Chest pain, unspecified (2) Abdominal pain Priority: Primary Status: Acute Qualifiers: Abdominal location: generalized Qualified Code(s): R10.84 - Generalized abdominal pain (3) Psychiatric disorder Priority: Primary Status: Acute (4) Seizure disorder Priority: Primary Status: Acute (5) DVT prophylaxis Priority: Primary Status: Acute Hospital course: Luis A Meek is a 63-year-old man with a history of psychotic disorder ( bipolar and schizoaffective) and inflammatory bowel disease. He was recently admitted to the [facility] for mental health issues. While in [place], patient was witnessed to have seizure activity, he was transferred to this hospital for further evaluation. Patient also reported having Hx of ulcerative colitis, which he has been seen by different doctors at different hospitals, is being treated with oral steroids recently, currently he is taking Balsalazide. Upon arrival to this hospital, he also complains chest pain and abdominal pain. CT of abdomen/pelvis revealed small bowel wall thickening, suspicious for infectious/inflammatory disease. He was placed on telemetry, serial troponin was negative. He underwent a EGD study on 02/22/2018, which essentially was normal besides a small hiatal hernia. I reviewed the chart, patient had a colonoscopy about 2 weeks ago, which was reviewed by his GI doctor. A brain MRI and EEG were completed and are normal. Patient was started on Keppra. He had a no witnessed the seizure since admission. Placed on IV Cipro and Flagyl for possible infectious enteritis. On the discharge today, patient vital signs were stable, her symptoms including chest pain, abdominal pain, nausea/vomiting improved. he was instructed to continue oral Cipro and Flagyl for 5 more days. Patient stated that he will continue to follow up GI specialist at [facility] for ulcerative colitis. Patient will be discharged back to [facility] to continue treating his mental health issues. Discharge discussed with: patient Time spent discussing smoking cessation with patient: more than 10 minutes - Time Spent with Patient Total time spent providing and/or coordinating discharge services: Greater than 30 minutes - Discharge Medications Prescriptions: Promethazine [Phenergan] 12.5 mg PO Q8HR PRN #20 tablet PRN Reason: Nausea And Vomiting levETIRAcetam [Keppra] 500 mg PO Q12HR #60 tablet Ciprofloxacin HCl [Cipro] 500 mg PO BID #10 tablet Dicyclomine [Bentyl] 20 mg PO QID PRN #30 capsule PRN Reason: Pain metroNIDAZOLE [Metronidazole] 500 mg PO TID #15 tablet Home Medications: Albuterol Sulfate [Albuterol Inhaler] 2 puff IH Q4HR 02/21/18 [History] Asenapine Maleate [Saphris] 10 mg SL HS 02/21/18 [History] Aspirin [Lo-Dose Aspirin EC] 81 mg PO DAILY 02/21/18 [History] Atorvastatin [Lipitor] 40 mg PO HS 02/21/18 [History] Balsalazide Disodium [Colazal] 2,250 mg PO TID 02/21/18 [History] Budesonide/Formoterol 80/4.5 [Symbicort 80/4.5] 2 puff IH BID 02/21/18 [History ] Docusate [Colace] 100 mg PO BID 02/21/18 [History] Famotidine [Pepcid] 40 mg PO BID 02/21/18 [History] Mirtazapine [Remeron] 30 mg PO HS 02/21/18 [History] Nicotine Patch [Nicoderm] 7 mg TD DAILY 02/21/18 [History] OLANZapine [Zyprexa] 5 mg PO BID 02/21/18 [History] Ondansetron ODT [Zofran ODT] 4 mg SL Q8HR PRN 02/21/18 [History] Tamsulosin [Flomax] 0.4 mg PO DAILY 02/21/18 [History] clonazePAM [Clonazepam] 1 mg PO TID 02/21/18 [History] hydrOXYzine HCl [Hydroxyzine HCl] 25 mg PO QID PRN 02/21/18 [History] traZODone [TraZODone] 100 mg PO HS 02/21/18 [History] Ciprofloxacin HCl [Cipro] 500 mg PO BID #10 tablet 02/23/18 [Rx] Dicyclomine [Bentyl] 20 mg PO QID PRN #30 capsule 02/23/18 [Rx] Promethazine [Phenergan] 12.5 mg PO Q8HR PRN #20 tablet 02/23/18 [Rx] levETIRAcetam [Keppra] 500 mg PO Q12HR #60 tablet 02/23/18 [Rx] metroNIDAZOLE [Metronidazole] 500 mg PO TID #15 tablet 02/23/18 [Rx] Allergies/Adverse Reactions: 3 Allergy/AdvReac Type Severity Reaction Status Date / Time acetaminophen [From Tylenol] Allergy Gastrointestinal Verified 02/20/18 20:37 Upset Date of admission: 02/21/18 00:15 Primary care physician: [facility] Consults: 02/21/18 06:50 Consult to Gastroenterology [CONS] Routine Consulting Provider: Gastroenter[facility] Reason for Consult: Patient reports longstanding history of IBD presenting with acute on chronic abdominal pain with inflammatory changes on CT. Call Completed: No 02/21/18 15:34 Consult to Helper/Driver [CONS] Routine Reason for SW Consult: Discharge planning 02/22/18 10:03 Consult to Neurology [CONS] Routine Consulting Provider: [facility] Reason for Consult: brain aneurysm, need to clear for possible anticoagulation. Call Completed: Yes 02/22/18 14:42 Consult to Interpret Exam [CONS] Routine Consulting Provider: Aria Beckwith I Consult to Interpret Exam: Interpret EEG Anticipated date of discharge: 02/23/18 - Constitutional Vitals: Temp Pulse Resp BP Pulse Ox 98.1 F 88 14 107/75 95 02/23/18 10:55 02/23/18 10:55 02/23/18 10:55 02/23/18 10:55 02/23/18 10:55 General appearance: Present: cooperative, A&O X 3, answers questions appropriately Exam: PHYSICAL EXAMINATION: GENERAL APPEARANCE: The patient is alert, oriented and in no acute distress. HEENT: Head is normocephalic. The sinuses are nontender. Pupils are equal and reactive. The nares are patent. Oropharynx clear without lesions. NECK: Supple without lymphadenopathy. HEART: Regular rate and rhythm. LUNGS: No crackles or wheezes are heard. ABDOMEN: Soft, nontender, nondistended with good bowel sounds heard. Inguinal area is normal. EXTREMITIES: Without cyanosis, clubbing or edema. NEUROLOGICAL: Gross nonfocal. SKIN: Warm and dry without any rash. - Patient Status Disposition: Transfer Other Condition: Fair Functional capacity at discharge: independent ambulation Overall status at discharge: patient is progressing back to baseline - Discharge Instructions Instructions: Chest Pain (DC) [facility]: [facility] [Primary Care Provider[facility] - Forms: ED Satisfaction Letter - Diet and Activity Activity: increase activity as tolerated Diet: advance to your usual diet
--- NOTE | 2018-02-23 14:05 | Gastroenterology Progress Note ---
Date of Encounter: 02/23/18 Time of Encounter: 14:02 - Assessment and plan (1) Abdominal pain Current Visit: Yes Status: Acute Assessment and plan: 63-year-old male with reporting past medical history of ulcerative colitis and Tomlin's esophagus complaining of abdominal pain. Sharp in nature and pulsatile. Recently seen at [facility] and treated for ulcerative colitis and diverticulitis with antibiotics and steroids. Started on Bisalazide by [place] gastroenterologists. Diagnosed with ulcerative colitis in 2007, self treating with diet control. Abdominal CT demonstrated small bowel wall thickening concern for infectious vs inflammatory process. WBC 9.9 (15.3), afebrile stool occult negative AST, ALT, alkaline phosphatase WNL -02/22/2018 small bowel enter endoscopy: normal esophagus, stomach, duodenum, portion of the jejunum. Pathology is pending. Plan: -Currently on ciprofloxacin and metronidazole day 3 -started on bentyl, Lactobacillus -home Colace Qualifiers: Abdominal location: generalized Qualified Code(s): R10.84 - Generalized abdominal pain - Time Spent With Patient Total time spent is greater than 50% in coordination of care (as documented) at patient's floor/unit and/or counseling patient: - Subjective Interval history: Patient was seen and examined at bedside. He is alert and oriented times 3. - Constitutional Vitals: Temp Pulse Resp BP Pulse Ox 98.1 F 88 14 107/75 95 02/23/18 10:55 02/23/18 10:55 02/23/18 10:55 02/23/18 10:55 02/23/18 10:55 General appearance: Present: A&O X 3 Exam: Gen.: Vitals noted. No acute distress. AAOx3 HEENT: oropharynx clear, Normocephalic, atraumatic Cardiac: RRR, no murmur, +S1/S2 Pulmonary: CTA bilaterally, no wheezes, rales or rhonchi, equal chest expansion Abdomen: soft, nontender, Bowel sounds noted, no guarding MSK: ROM intact, no joint swelling noted Extremities: no BLE edema, nontender calf, no cyanosis or clubbing Neuro: A&Ox3, moves all extremities, no focal deficits Psych: Appropriate mood and behavior Results - Labs CBC & Chem 7: 02/23/18 04:36 02/23/18 04:36 Labs: Last Result Calcium 8.9 mg/dL (8.6-10.3) 02/23/18 04:36 Troponin I < 0.03 ng/mL (< 0.04) 02/21/18 05:49 Stool Occult Blood Negative (Negative) 02/21/18 06:30 Entire Visit Hgb 13.1 g/dL (12.9-16.9) 02/23/18 04:36 Hct 41.2 % (37.5-50.1) 02/23/18 04:36 Total Bilirubin 0.2 mg/dL (0.3-1.0) L 02/21/18 05:49 AST 14 Units/L (13-39) 02/21/18 05:49 ALT 11 Units/L (7-52) 02/21/18 05:49 - Impressions Impressions Head MRI 02/22/18 10:23 IMPRESSION: No specific seizure focus is identified. No acute infarct, intracranial hemorrhage, or significant mass effect. No evidence of abnormal contrast enhancement. Mild amount of chronic small vessel ischemic white matter disease. D/ / 02/22/2018 16:31:41 Bam Thompson MD / johan Interpreting Provider: Bam Thompson MD Consult Discharge Plan - Plan Instructions: Chest Pain (DC) Referrals: [facility],PCP [Primary Care Provider] - Prescriptions: Promethazine [Phenergan] 12.5 mg PO Q8HR PRN #20 tablet PRN Reason: Nausea And Vomiting levETIRAcetam [Keppra] 500 mg PO Q12HR #60 tablet Ciprofloxacin HCl [Cipro] 500 mg PO BID #10 tablet Dicyclomine [Bentyl] 20 mg PO QID PRN #30 capsule PRN Reason: Pain metroNIDAZOLE [Metronidazole] 500 mg PO TID #15 tablet
--- NOTE | 2018-02-24 09:33 | Electrocardiograph Report ---
[address] [address] Test Date: 2018-02-20 Pat Name: Luis A Meek Department: [id number] Room: 3B45 Gender: M [employer]ic: : [id number] Requested By: Luis A Louise Order Number: [id number] Reading MD: Sonja Morales Measurements Intervals [place] Rate: 105 P: 68 CO: 161 QRS: 59 QRSD: 87 T: 73 QT: 343 QTc: 454 Interpretive Statements Age not entered, assumed to be 51 years old for purpose of ECG interpretation Sinus tachycardia Low voltage, precordial leads ST elev, probable normal early repol pattern Electronically Signed On 02-24-2018 9:31:51 EDT by Sonja Morales
== END 2018-02-23 14:58 ==
LOC: EMEROOARM 20:14 → 3BNU 20:14
PROVIDERS: ADMIT Internal Medicine; ATTEND Internal Medicine